=== PATIENT | female | born 1940 | race Caucasian/White ===

== ENCOUNTER 2016-09-26 02:05 | Emergency (ER) | payer OTHER, MEDICARE ==
[2016-09-26 03:23] LABS: PLATELET COUNT 257 x10^3mcL (130-400); RED CELL DISTRIBUTION WIDTH 12.1 % (11.5-14.5)
[2016-09-26 03:25] LABS: ALBUMIN 3.4 g/dL (3.4-5.0); ALKALINE PHOSPHATASE 90 U/L (46-116); ALT/SGPT 19 U/L (14-59); AST/SGOT 15 U/L (15-37); BILIRUBIN TOTAL 0.64 mg/dL (0.20-1.00); CALCIUM 8.8 mg/dL (8.5-10.1); CARBON DIOXIDE 26.8 mmol/L (21-32); CHLORIDE SERUM 98 mmol/L (98-107); CREATININE SERUM 0.7 mg/dL (0.6-1.0); POTASSIUM SERUM 4.1 mmol/L (3.5-5.1); SODIUM SERUM 133 mmol/L (136-145); TOTAL PROTEIN, SERUM 6.9 g/dL (6.4-8.2)
[2016-09-26 03:35] LABS: BASOPHIL % 3.9 % (0-2)
[2016-09-26 04:13] LABS: GLUCOSE SERUM 498 mg/dL (74-106)
[2016-09-26 06:36] VITALS: BP 116/74
== END 2016-09-26 06:36 | disposition home or self-care (01) ==
LOC: ED 02:05
PROVIDERS: Emergency Medicine
DX: Z00.8 Encounter for other general examination (principal); E11.65 Type 2 diabetes mellitus with hyperglycemia; F32.9 Major depressive disorder, single episode, unspecified
CPT/HCPCS: 82962; G0480; J1815; J7030

== ENCOUNTER 2016-12-20 09:51 | Inpatient (IN) | payer OTHER ==
[~2016-12-20] VITALS: Ht 162.6 cm; Wt 53.1 kg
--- NOTE | 2016-12-20 10:14 | NUR ---
PT IS A 76 YEAR OLD FEMALE, RPESENTS TO ED VIA [facility] WITH C/O ALOC AND GENERALIZED WEAKNESS. PER MEDICS, PT WAS FOUND AT HOME IN [place] ON FLOOR. PD WAS CALLED BY FAMILY TO DO A WELLNESS CHECK ON PT DUE TO PT NOT ANSWERING PHONE FOR PAST 3 DAYS. PD FOUND PT ON FLOOR, NO LOC REPORTED. PT REPORTS THAT SHE WENT TO RESTROOM LAST NIGHT AND WAS UNABLE TO GET UP OFF THE TOILET SO SHE STAYED ON RESTROOM FLOOR AND FELT TOO WEAK TO GET BACK TO BED. BS ON SCENE WAS 358. MEDICS GAVE PT ABOUT 400CC OF NS IN LEFT AC IV.PT HAS NOT BEEN COMPLIANT WITH DIABETIC MEDS. PT A/O X4. PT BREAHTING IS EVEN AND UNLABORED, NO S/S OF RESPRAITORY DISTRESS. SPEECH IS CLEAR AND APPROPRIATE. PT LIPS ARE CRACKED. PT HOOKED TO FULL SECURITIES COMPLIANCE EXAMINER. SKIN IS WARM, DRY AND INTACT. PT AWIAITING MSE.
[2016-12-20 11:15] LABS: PLATELET COUNT 385 x10^3mcL (130-400); RED CELL DISTRIBUTION WIDTH 12.3 % (11.5-14.5)
--- NOTE | 2016-12-20 11:18 | NUR ---
BACK FROM CT VIA [facility].
[2016-12-20 11:41] LABS: T3 TOTAL 0.41 ng/mL
[2016-12-20 11:43] LABS: CALCIUM 9.8 mg/dL (8.5-10.1); CARBON DIOXIDE 19.7 mmol/L (21-32); CHLORIDE SERUM 100 mmol/L (98-107); GLUCOSE SERUM 381 mg/dL (74-106); SODIUM SERUM 140 mmol/L (136-145)
[2016-12-20 11:48] LABS: ALKALINE PHOSPHATASE 129 U/L (46-116); ALT/SGPT 14 U/L (14-59); AST/SGOT 12 U/L (15-37); BILIRUBIN TOTAL 0.8 mg/dL (0.20-1.00); TOTAL PROTEIN, SERUM 7.3 g/dL (6.4-8.2)
[2016-12-20 11:49] LABS: ALBUMIN 2.8 g/dL (3.4-5.0); CHOLESTEROL 213 mg/dL (<200)
[2016-12-20 12:09] LABS: BAND NEUTROPHIL 0 % (0-10); BASOPHIL 0 % (0-2); FREE T4 1.89 ng/dL (0.76-1.46); FREE THYROXINE INDEX 2.7 ug/dL (1.4-4.5); MONOCYTE 1 % (0-7); SEGMENTED NEUTROPHILS 98 % (37-75); T4(THYROXINE) 7.5 ug/dL (4.7-13.3)
[2016-12-20 12:10] LABS: PLATELET MORPHOLOGY PLATELETS INCREASED; rbc morphology (normal/abnorm) NORMAL (NORMAL)
--- NOTE | 2016-12-20 12:53 | NUR ---
REPORT CALLED TO KELSEY WONG, HE WILL ASSUME CARE PRIMARY RN POST TRASNFER.
--- NOTE | 2016-12-20 12:55 | NUR ---
RECEIVED REPORT FROM ZORA WONG, WILL AWAIT PT'S ARRIVAL.
[2016-12-20 12:58] LABS: microscopic required? YES; urine erythrocyte TRACE (NEGATIVE)
--- NOTE | 2016-12-20 13:08 | NUR ---
PT VOMITED APRROX 150ML OF BILE WITH PHLEM NOTED IN VOMIT.
--- NOTE | 2016-12-20 13:24 | NUR ---
ARRIVED FROM ED.
[2016-12-20 13:49] VITALS: BP 99/57
--- NOTE | 2016-12-20 13:57 | NUR ---
RECEIVED PT FROM ED VIA [facility]. ORIENTED PT TO ROOM AND SURROUNDINGS. IV NOTED TO LAC PATENT AND INTACT. TELE 36 PLACED ON PT READING STA. INSTRUCTED PT ON THE USE OF CALL LIGHT FOR ASSISTANCE. ENDORSD PT TO PRIMARY NURSE KELSEY
--- NOTE | 2016-12-20 14:06 | NUR ---
PT DENIES SOB, DENIES PAIN, C/O THIRST, RECEIVED REPORT CONCERNING PT FROM TEJAS RN, ASSUMING CARE OF PT, CALL LIGHT INSTRUCTIONS GIVEN, CALL LIGHT WITHIN REACH, WILL CONTINUE TO MONITOR.
--- NOTE | 2016-12-20 15:04 | NUR ---
PT DENIES SOB, DENIES PAIN, FAMILY MEMBER AT BEDSIDE, PT USING PHONE, CALL LIGHT WITHIN REACH, WILL CONTINUE TO MONITOR.
[2016-12-20 16:39] LABS: MAGNESIUM 2.4 mg/dL (1.8-2.4); PHOSPHOROUS 3.8 mg/dL (2.5-4.9)
[2016-12-20 16:40] LABS: CHOLESTEROL/HDL RATIO 4.4
--- NOTE | 2016-12-20 16:45 | NUR ---
PT DENIES SOB, DENIES PAIN, US AT BEDSIDE, CALL LIGHT WITHIN REACH, WILL CONTINUE TO MONITOR.
[2016-12-20 17:00] VITALS: BP 99/57
[2016-12-20 17:02] VITALS: BP 117/69
[2016-12-20 17:08] LABS: CALCIUM 9.5 mg/dL (8.5-10.1); CARBON DIOXIDE 21.7 mmol/L (21-32); CHLORIDE SERUM 102 mmol/L (98-107); CREATININE SERUM 0.7 mg/dL (0.6-1.0); GLUCOSE SERUM 330 mg/dL (74-106); POTASSIUM SERUM 4.4 mmol/L (3.5-5.1); SODIUM SERUM 137 mmol/L (136-145)
--- NOTE | 2016-12-20 17:26 | NUR ---
PT DENIES PAIN, DENIES SOB, BS 317 COVERED PER RISS, ANTIBIOTICS INFUSING, CALL LIGHT WITHIN REACH, WILL CONTINUE TO MONITOR.
--- NOTE | 2016-12-20 18:11 | NUR ---
PT DENIES SOB, DENIES PAIN, DIET ORDERED AND FNS CONTACTED, CALL LIGHT WITHIN REACH, WILL ENDORSE PT TO NEXT SHIFT.
--- NOTE | 2016-12-20 19:43 | NUR ---
PT AAO REG RESP NO SOB V/S STABLE,KEPT CLEAN AND DRY TO TOUCH,IV INFUSING WELL WITH THE SITE PATENT AND INTACT,HOB,PT ON TELE MONITOR AND IN NSR NO ECTOPY OR CHEST PAIN AT THIS TIME,PT ON LOW AIR MATTRESS,HOB,CALL LIGHT EASY REACHED AND WILL CONTINUE TO MONITOR.
--- NOTE | 2016-12-20 20:42 | NUR ---
RESTARTED A NEW HL TO THE LT FOREARM WITH THE SITE PATENT AND INTACT.
[2016-12-20 21:18] VITALS: BP 105/55
--- NOTE | 2016-12-20 21:21 | NUR ---
CALL TO THE LAB TO HAVE THE BMP ORDER AT 2030 TO BE,SAYS THEY WILL COME TO WILL BE COMING UP TO HAVE IT DONE,WILL CONTINUE TO MONITOR. = Note Type Description
[2016-12-20 22:02] LABS: CALCIUM 9.3 mg/dL (8.5-10.1); CARBON DIOXIDE 26.7 mmol/L (21-32); CHLORIDE SERUM 103 mmol/L (98-107); CREATININE SERUM 0.8 mg/dL (0.6-1.0); GLUCOSE SERUM 242 mg/dL (74-106); SODIUM SERUM 140 mmol/L (136-145)
[2016-12-20 22:04] LABS: POTASSIUM SERUM 2.8 mmol/L (3.5-5.1)
--- NOTE | 2016-12-20 22:16 | NUR ---
DR SIMON HAPPEN TO BE ON THE FLOOR MADE AWARE OF PATIENT K+ 2.8,PT SLEEPING AT THIS TIME,WILL CONTINUE TO MONITOR
[2016-12-20] MEDS ORDERED: MIRTAZAPINE15 M2 PO (22:17)
--- NOTE | 2016-12-20 22:33 | NUR ---
20 MEQ K+ RIDER ADMINISTER ORDER.
[2016-12-21 06:02] VITALS: BP 107/61
[2016-12-21 06:29] LABS: CALCIUM 9.1 mg/dL (8.5-10.1); CARBON DIOXIDE 25.9 mmol/L (21-32); CHLORIDE SERUM 109 mmol/L (98-107); CREATININE SERUM 0.6 mg/dL (0.6-1.0); GLUCOSE SERUM 150 mg/dL (74-106); POTASSIUM SERUM 3.9 mmol/L (3.5-5.1); SODIUM SERUM 141 mmol/L (136-145)
--- NOTE | 2016-12-21 06:42 | NUR ---
PT HAD A RESTING NIGHT NO CHANGE IN CONDITION AT THIS TIME,PT CLEAN AND DRY TO TOUCH,WILL CONTINUE TO MONITOR.
[2016-12-21 06:50] LABS: BASOPHIL % 0.2 % (0-2); PLATELET COUNT 350 x10^3mcL (130-400); RED CELL DISTRIBUTION WIDTH 12.4 % (11.5-14.5)
--- NOTE | 2016-12-21 07:33 | NUR ---
PT RECEIVED DURING CHANGE OF SHIFT, ASLEEP BUT AROUSABLE, TELE 36, ST, PULSES PRESENT, NO EDEMA, LUNGS DIM JUAN ANTONIO ON RA, BREATHING EVEN AND UNLABORED, BOWEL SOUNDS ACTIVE, ABLE TO VOID, GENERALIZED WEAKNESS, AIR MATTRESS IN USE, SMALL WOUNDS TO ANUS, NON BLANCHABLE REDNESS TO COCCYX, NO INDICATION OF PAIN, IV TO LAC INFUSING NS AT 140ML/HR, CALL LIGHT WITHIN REACH, WILL CONTINUE TO MONITOR.
--- NOTE | 2016-12-21 09:30 | NUR ---
PT AROUSED FROM SLEEP, AGREED TO MEDICATIONS, NO INDICATION OF PAIN, BREATHING EVEN AND UNLABORED, CALL LIGHT WITHIN REACH, WILL CONTINUE TO MONITOR.
[2016-12-21 09:31] VITALS: BP 108/54
--- NOTE | 2016-12-21 10:07 | NUR ---
PT SPEAKING WITH DR. HIGGINS AND DR. GRIMES.
--- NOTE | 2016-12-21 11:25 | NUR ---
PT ASLEEP BUT AROUSABLE, DENIES SOB, DENIES PAIN, BS 161, VETERINARY VIRUS SERUM INSPECTOR REPORTED PT ONLY ATE 10% OF BREAKFAST, HOLDING INSULIN DUE TO POOR APPETITE, CALL LIGHT WITHIN REACH, WILL CONTINUE TO MONITOR.
--- NOTE | 2016-12-21 12:18 | NUR ---
PT DENIES SOB, DENIES PAIN, CALL LIGHT WITHIN REACH, WILL CONTINUE TO MONITOR.
--- NOTE | 2016-12-21 13:15 | NUR ---
PT DENIES SOB, DENIES PAIN, REQUESTED COFFEE, CALL LIGHT WITHIN REACH, WILL CONTINUE TO MONITOR.
--- NOTE | 2016-12-21 14:16 | NUR ---
PT DENIES SOB, DENIES PAIN, ASSISTED PT TO REPOSITION, CALL LIGHT WITHIN REACH, WILL CONTINUE TO MONITOR.
--- NOTE | 2016-12-21 14:29 | NUR ---
STAFF COUNSELOR BRENDA AND PRIMARY RN CLEANED PT AFTER BM, BM TARRY WITH RED SPOTTING ON CHUX, AFTER ASSISTING WITH ADLS Z-GUARD AND OPTIFOAM DRESSING BLACKED TO COCCYX, DRY HEELS NOTED, PILLOW TO BE PLACED UNDER CALF PER BRENDA RN.
[2016-12-21 14:32] VITALS: BP 114/61
--- NOTE | 2016-12-21 15:26 | NUR ---
PT DENIES SOB, DENIES PAIN, CALL LIGHT WITHIN REACH, WILL CONTINUE TO MONITOR.
--- NOTE | 2016-12-21 16:34 | NUR ---
PT DENIES SOB, DENIES PAIN, REQUESTING ICED TEA AND SUGAR FREE ICE CREAM WITH DINNER, CALL LIGHT WITHIN REACH, WILL CONTINUE TO MONITOR.
--- NOTE | 2016-12-21 17:10 | NUR ---
PT SPEAKING WITH DR. OWEN.
[2016-12-21 17:42] VITALS: BP 117/67
--- NOTE | 2016-12-21 18:14 | NUR ---
PT DENIES SOB, DENIES PAIN, EATING DINNER, CALL LIGHT WITHIN REACH, WILL ENDORSE PT TO NEXT SHIFT.
--- NOTE | 2016-12-21 19:21 | NUR ---
REC'D PT FROM DAY NURSE. AAOX3. LAYING IN BED COMFORTABLY. DENIES PAIN AT THIS TIME. TELE #36 SR. LUNG SOUNDS ARE DIMINISHED BUT CTA. NO SOB. BREATHING EVEN AND UNLABORED. ABD IS ACTIVE X4. NO EDEMA NOTED. IV INTACT AND PATENT INFUSING WELL. BED IN LOWEST POSITION. CALL LIGHT WITHIN REACH. WILL CONT TO MONITOR.
[2016-12-21 20:21] VITALS: BP 89/45
[2016-12-21 22:10] VITALS: BP 101/64
--- NOTE | 2016-12-22 00:22 | NUR ---
PT IS CURRENTLY ASLEEP AND RESTING WELL. NO ACUTE DISTRESS NOTED. BREATHING EVEN AND UNLABORED. IV INTACT AND PATENT INFUSING WELL. WILL CONT TO MONITOR.
--- NOTE | 2016-12-22 04:51 | NUR ---
ROUNDS MADE. PT IS ASLEEP AND RESTING WELL WITH THE HOB ELEVATEED. NO ACUTE DISTRESS NOTED. BREATH SOUNDS ARE EVEN AND UNLABORED. IV INTACT AND PATENT. WILL CONT TO MONITOR.
[2016-12-22 06:10] VITALS: BP 100/60
--- NOTE | 2016-12-22 06:27 | NUR ---
PT SLEPT THROUGHOUT THE SHIFT. NO ACUTE DISTRESS OR SIGNIFICANT CHANGES NOTED. BREATHING EVEN AND UNLABORED. MEDICATED PER EMAR. IV INTACT AND PATENT INFUSING WELL. WILL ENDORSE ALL CONTNUITY CARE TO ONCOMING NURSE.
--- NOTE | 2016-12-22 08:00 | NUR ---
A/A/OX3; CLEAR SPEECH. TELE#36 = ST; HR = 101; DENIED CHEST PAIN. BREATHING SOUND DIMINISHED TO LLL W/ FINE CRACKLES. NO SOB ON RA. O2 SAT 96% ON RA.OCCASINAL NON PRODUCTIVE COUGHING. FINISHED 80% OF BREAKFAST. OUT OF BED WITH PHYSICAL THERAPIST. B/B INCONT. HAD LARGE LOOSE BM X1. DENIED PAIN. IVF FO NS 80CC/HR INFUSING WELL TO RFA. IV SITE CLEAN. CALL LIGHT IN REACH.
--- NOTE | 2016-12-22 09:10 | NUR ---
DR. ROMERO AND MEDICAL TEAM MADE MORNING ROUND. PLAN OF CARE DISCUSSED WITH PATEINT, INCLUDED WITH TREATMENT OF PNA. PATIENT AGREED WITH PLAN OF CARE.
[2016-12-22 09:23] VITALS: BP 93/46
[2016-12-22 09:39] LABS: ALKALINE PHOSPHATASE 92 U/L (46-116); ALT/SGPT 12 U/L (14-59); AST/SGOT 13 U/L (15-37); BILIRUBIN TOTAL 0.51 mg/dL (0.20-1.00); CALCIUM 8.8 mg/dL (8.5-10.1); CHLORIDE SERUM 105 mmol/L (98-107); CREATININE SERUM 0.6 mg/dL (0.6-1.0); GLUCOSE SERUM 208 mg/dL (74-106); SODIUM SERUM 139 mmol/L (136-145)
[2016-12-22 09:50] LABS: ALBUMIN 2.2 g/dL (3.4-5.0); POTASSIUM SERUM 2.8 mmol/L (3.5-5.1); TOTAL PROTEIN, SERUM 5.9 g/dL (6.4-8.2)
[2016-12-22 10:03] LABS: PLATELET COUNT 281 x10^3mcL (130-400); RED CELL DISTRIBUTION WIDTH 12.8 % (11.5-14.5)
[2016-12-22 10:43] LABS: BAND NEUTROPHIL 0 % (0-10); BASOPHIL 0 % (0-2); MONOCYTE 3 % (0-7); SEGMENTED NEUTROPHILS 88 % (37-75)
[2016-12-22 10:44] LABS: PLATELET MORPHOLOGY PLATELETS NORMAL
--- NOTE | 2016-12-22 11:00 | NUR ---
NOTIFIED DR. BUTT WITH PATIENT'S POTASSIUM LEVEL = 2.8; ORDER OF KCL 40 MEQ PO GIVEN. K- RIDER IN PENDING.
--- NOTE | 2016-12-22 13:13 | NUR ---
Initial Nutrition Assessment Dx: Pneumonia, dehydration, diabetes out of control PMHx: DM, COPD, HLD PSHx: Cholecystectomy (29 years ago) Labs: (12/22) BH, Alb:2.2L, (12/20) TH, Chol:213H, LDL:137H, A1c:11.5H, Meds: Antivert, Colace, Glucophage, Glucotrol, Humulin, KCL, Lactinex, NS IV, Zosyn Diet:Mechanical soft, chopped PO Intake: (12/21) B:10%, L:20% D:60% (12/22) B:80% Ht: 64in, 5'4" Wt: 117#,53.07kg BMI:20.1kg/m2 (normal weight) IBW: 120#,55kg %IBW: 98% UBW:129# x 1 month, per pt Age:76 y/o female Food Allergies:NKFA Skin: +1cm healed sacral ulcer. Ponce:13 Edema:None GI: Last BM:12/18 Nursing Trigger: appears underweight/malnourished, unintentional wt loss>10# in past month and poor PO intake>3days. Pt admitted with possible aspiration pneumonia vs. 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 CT of head showed no acure inctracranial process, per H&P. Per bed huddle yesterday morning, pt is being treated for pneumonia with antibiotics, is on RT protocol and will have a consult with Dr. Will for suicidal ideation. Per progress note 12/21, urology will be consulted on 12/22 for mild BL hydronephrosis. During visit, observed pt lying underneath covers and eating denis crackers. Pt appears underweight but not malnourished. Pt reports good appetite with no GI issues. Pt stated she has had unintentional wt los of 12# within the past month due to poor appetite and was open to trying supplements for wt gain. Problem with: N: No V: No D:No C:No Problems with: Chewing:No Swallowing: No Current appetite: Good Recent wt change:-12# in the past month %wt change:9.3%, severe Vitamin/Supplement use:No Special diet at home:Regular Physical activity:Pt walks her dogs 3x/day Education: Pt declined diabetic diet education. Estimated Nutritional Needs Based on actual body weight 53kg Energy: 1590-1855kcal/d (30-35kcal/kg for weight gain) Protein: 53-64g/d (1.0-1.2g/kg for weight gain) Fluid: 1325-1590ml/d (1 ml/kcal) or per doctor Nutrition Diagnosis 1. Altered nutrition labs related to endocrine dysfunction and pt reports non-compliance with Metformin as evidenced by A1c:11.2 2. Unintentional wt loss related to poor appetite secondary to lethargy per pt as evidenced by 12# wt loss and 9.3% wt change in the past month. Intervention 1.Recommend Boost Glucose Control BID between meals (provides 500kcal and 28g pro) Monitor/Evaluate Goal: PO intake at least 75% of estimated needs Monitor: PO intake, Labs, GI function F/U in 3-5 days as moderate risk:12/25-6
--- NOTE | 2016-12-22 13:16 | NUR ---
Recommend Boost Glucose Control BID between meals (provides 500kcal and 28g pro)
[2016-12-22 14:18] VITALS: BP 101/55
--- NOTE | 2016-12-22 16:10 | NUR ---
PHYSICAL THERAPY DAILY NOTES CO-SIGN All documentation done by the Supervisor Inventory Merchandising for 12/22/16 has been reviewed. I agree with the documentation. Reviewed/Co-Signed by: Eden Mcrae PT Documentation Done by:SAURABH VASQUEZ INVESTMENT SALES ASSISTANT POC REVIEWED W/ INVESTMENT SALES ASSISTANT; WILL BENEFIT W/ P.T. AFTER ACUTE STAY; PROGRESS SHIRA; EMPHASIS ON STRENGTHENING PROGRAM, FALL PREVENTION, SAFE GAIT PROGRESSION.
[2016-12-22 16:20] LABS: CALCIUM 8.3 mg/dL (8.5-10.1); CARBON DIOXIDE 31.9 mmol/L (21-32); CHLORIDE SERUM 104 mmol/L (98-107); CREATININE SERUM 0.7 mg/dL (0.6-1.0); GLUCOSE SERUM 345 mg/dL (74-106); POTASSIUM SERUM 3.9 mmol/L (3.5-5.1); SODIUM SERUM 137 mmol/L (136-145)
--- NOTE | 2016-12-22 16:41 | NUR ---
K - RIDER 40 MEQ IV GIVEN. BMP CHECKED.
[2016-12-22 18:46] VITALS: BP 102/60
--- NOTE | 2016-12-22 19:00 | NUR ---
CONDITION STABLE. TOLERATED DINNER WELL. HAD LARGE LOOSE BM X2 THIS SHIFT. URINE INCONT. ENDORSED CARE TO NOC NURSE.
[2016-12-22 21:44] VITALS: BP 100/53
[2016-12-23] VITALS (7 sets, daily range): BP systolic 101–120; BP diastolic 53–78; Ht 162.6 cm; Wt 53.1 kg
[2016-12-23 06:14] LABS: CALCIUM 8.4 mg/dL (8.5-10.1); CARBON DIOXIDE 30.9 mmol/L (21-32); CHLORIDE SERUM 107 mmol/L (98-107); CREATININE SERUM 0.4 mg/dL (0.6-1.0); GLUCOSE SERUM 176 mg/dL (74-106); POTASSIUM SERUM 3.9 mmol/L (3.5-5.1); SODIUM SERUM 139 mmol/L (136-145)
--- NOTE | 2016-12-23 07:00 | NUR ---
PT SLEPT AT LONG INTERVALS DURING SHIFT. NO C/O PAIN. NO DISTRESS NOTED. SAFETY MEASURES MAINTAINED. CALL LIGHT WITHIN REACH. WILL ENDORSE CARE TO DAY SHIFT RN.
[2016-12-23 07:09] LABS: BASOPHIL % 0.3 % (0-2); PLATELET COUNT 261 x10^3mcL (130-400); RED CELL DISTRIBUTION WIDTH 12.8 % (11.5-14.5)
--- NOTE | 2016-12-23 07:20 | NUR ---
BEDSIDE REPORT RECEIVED FROM [facility] SHIFT NURSE AT THIS TIME. PATIENT ASLEEP, NO SIGNS OF DISTRESS NOTED, WILL CONTINUE TO MONITOR, BED ALARM ON.
--- NOTE | 2016-12-23 07:55 | NUR ---
PATIENT AWAKE, ALERT, NO SIGNS OF DISTRESS NOTED, EATING BREAKFAST. OREINTED X3, FORGETFUL AT TIMES, DENIES HEADACHE. DENIES CHEST PAIN, NO DIZZINESS, TELE# 36, HR 90. SCD'S IN PLACE, ON ROOM AIR, NS INFUSING TO RFA AT 80 ML/HR, NO REDNESS NOR INFILTRATION NOTED TO SITE. CALM AND COOPERATIVE WITH CARE, ALL SAFETY MEASURES IN PLACE, WILL CONTINUE TO MONITOR.
--- NOTE | 2016-12-23 08:50 | NUR ---
ROUNDS MADE AT THIS TIME WITH MD TEAM, CHARGE NURSE EULOGIO, AND DR KEENAN. PLAN OF CARE DISCUSSED WITH PATIENT, ALL SAFETY MEASURES IN PLACE, WILL CONTINUE TO MONITOR.
--- NOTE | 2016-12-23 10:15 | NUR ---
PATIENT AWAKE, ALERT, FAMILY AT BEDSIDE. ALL NEEDS ATTENDED TO, ALL SAFETY MEASURES IN PLACE, WILL CONTINUE TO MONITOR.
--- NOTE | 2016-12-23 12:30 | NUR ---
PATIENT AWAKE, ALERT, NO SIGNS OF DISTRESS NOTED. FAMILY AT BEDSIDE, ALL SAFETY MEASURES IN PLACE, BED ALARM ON, WILL CONTINUE TO MONITOR.
--- NOTE | 2016-12-23 15:10 | NUR ---
PATIENT ASLEEP, NO SIGNS OF DISTRESS NOTED, BREATHING EVEN AND UNLABORED, ALL SAFETY MEASURES IN PLACE, WILL CONTINUE TO MONITOR.
--- NOTE | 2016-12-23 16:20 | NUR ---
PHYSICAL THERAPY DAILY NOTES CO-SIGN All documentation done by the Php Software Engineer for 12/23/16 has been reviewed. I agree with the documentation. I CONCUR W/RUSSET REPAIRER NOTE; CONT PER TX PLAN Reviewed/Co-Signed by: Ansley Aguilar V PT Documentation Done by: SAURABH VASQUEZ RUSSET REPAIRER
--- NOTE | 2016-12-23 17:50 | NUR ---
ASSISTED PATIENT TO BATHROOM AT THIS TIME. GAIT SLOW, UNSTEADY, SAFELY RETURNED TO BED, BED ALARM ON, CALL LIGHT IN HAND, WILL CONTINUE TO MONITOR.
--- NOTE | 2016-12-23 19:15 | NUR ---
PATIENT RECEIVED AWAKE, ALERT, AND ORIENTED X 3. NO DISTRESS NOTED. PATIENT DENIES PAIN AT THIS TIME. IV SITE TO RIGHT FOREARM, PATENT AND INTACT. IV FLUID INFUSING PER DOCTOR'S ORDER. BED IN LOWEST POSITION. CALL LIGHT WITHIN REACH. WILL CONTINUE TO MONITOR.
--- NOTE | 2016-12-24 05:06 | NUR ---
PATIENT RESTED THROUGHOUT THE NIGHT. NO DISTRESS NOTED. NO C/O PAIN/DISCOMFORT. BED IN LOWEST POSITION. CALL LIGHT WITHIN REACH. WILL CONTINUE TO MONITOR AND ENDORSE TO NEXT SHIFT NURSE.
--- NOTE | 2016-12-24 05:35 | NUR ---
PATIENT BS=61, PROVIDED CRACKERS AND JUICE. RECHECKED BS=58. PUSHED 25ML OF D50. RECHECKED DI=886. DR DAQUAN BARRY.
[2016-12-24 06:06] VITALS: BP 126/67
--- NOTE | 2016-12-24 07:10 | NUR ---
BEDSIDE REPORT RECEIVED FROM [facility] SHIFT NURSE AT THIS TIME. PATIENT ASLEEP, NO SIGNS OF DISTRESS NOTED. BREATHING EVEN AND UNLABORED, ALL SAFETY MEASURES IN PLACE, WILL CONTINUE TO MONITOR.
[2016-12-24 07:39] LABS: BASOPHIL % 0.2 % (0-2); PLATELET COUNT 265 x10^3mcL (130-400); RED CELL DISTRIBUTION WIDTH 12.9 % (11.5-14.5)
--- NOTE | 2016-12-24 07:40 | NUR ---
PATIENT AWAKE, ALERT, NO SIGNS OF DISTRESS NOTED. DENIES CHEST PAIN, NO DIZZINESS, TELE# 36. SCD'S IN PLACE, ON ROOM AIR. NS INFUSING TO RFA AT 80 ML/HR, NO REDNESS NOR INFILTRATION NOTED TO SITE. CALM AND COOPERATIVE WITH CARE, ALL SAFETY MEASURES IN PLACE, WILL CONTINUE TO MONITOR.
--- NOTE | 2016-12-24 08:40 | NUR ---
ROUNDS MADE AT THIS TIME WITH MD TEAM, CHARGE NURSE URIEL, AND DR KEENAN. PATIENT AWAKE, ALERT, NO SIGNS OF DISTRESS NOTED. ALL QUESTIONS ADDRESSED, WILL CONTINUE TO MONITOR.
[2016-12-24 10:13] VITALS: BP 130/74
--- NOTE | 2016-12-24 12:00 | NUR ---
PATIENT AWAKE, ALERT, FAMILY AT BEDSIDE. NO SIGNS OF DISTRESS NOTED, ALL SAFETY MEASURES IN PLACE, WILL CONTINUE TO MONITOR.
[2016-12-24 13:33] VITALS: BP 139/79
--- NOTE | 2016-12-24 13:45 | NUR ---
PATIENT AWAKE, ALERT, FAMILY AT BEDSIDE, PATIENT WARM TO TOUCH, T 100.7, TYLENOL GIVEN (SEE EMAR), COOLING MEASURES IN PLACE, WILL CONTINUE TO MONITOR.
--- NOTE | 2016-12-24 13:50 | NUR ---
PATIENT HOT TO TOUCH, TEMP 100.7, NO SIGNS OF DISTRESS NOTED, FAMILY AT BEDSIDE, TYLENOL GIVEN (SEE EMAR). ALL SAFETY MEASURES IN PLACE, WILL CONTINUE TO MONITOR.
[2016-12-24 17:24] VITALS: BP 138/78
--- NOTE | 2016-12-24 17:30 | NUR ---
PATIENT AWAKE, ALERT, NO SIGNS OF DISTRESS NOTED, ASSISTED TO BATHROOM AT THIS TIME. RETURNED SAFELY TO BED. FAMILY AT BEDSIDE, CALL LIGHT IN HAND, WILL CONTINUE TO MONITOR.
--- NOTE | 2016-12-24 19:02 | NUR ---
BEDSIDE REPORT GIVEN TO NOC SHIFT NURSE AT THIS TIME. PATIENT AWAKE, ALERT, NO SIGNS OF DISTRESS NOTED. ALL SAFETY MEASURES IN PLACE, WILL CONTINUE TO MONITOR.
[2016-12-24 21:44] VITALS: BP 120/66
--- NOTE | 2016-12-25 04:14 | NUR ---
PATIENT BS=57 RECHECKED BS=59. PUSHED D50. RECHECKED WF=353. DR MIRANDA AWARE. WILL CONTINUE TO MONITOR.
--- NOTE | 2016-12-25 05:03 | NUR ---
PATIENT RESTED THROUGHOUT THE NIGHT. NO DISTRESS NOTED. NO C/O PAIN/DISCOMFORT. SAFETY AND COMFORT MEASURES MAINTAINED. BED IN LOWEST POSITION. CALL LIGHT WITHIN REACH. WILL CONTINUE TO MONITOR AND ENDORSE TO NEXT SHIFT NURSE.
[2016-12-25 06:00] VITALS: BP 127/72
--- NOTE | 2016-12-25 07:30 | NUR ---
PT AWAKE ALERT AND ORIENTED X3 FORGETFUL AT TIMES. TELE 36. PULSES EQUAL BILATERAL NO EDEMA NOTED. LUNG SOUNDS DIMINISHED TO BLL. BOWEL TONES ACTIVE IN ALL QUADS. GENERALIZED EDEMA. REDNESS TO COCCYX. DENIES PAIN. PT IS CALM AND COOERATIVE WITH CARE.
[2016-12-25] MEDS ORDERED: LEVAQUIN750 MG PO (09:50)
[2016-12-25] MEDS ORDERED: CLINDAMYCIN HC300 MG PO (09:50)
[2016-12-25] MEDS ORDERED: FLO4 PO (09:55)
--- NOTE | 2016-12-25 09:55 | NUR ---
PT RESTING IN BED NO SIGNS OF DISTRESS, CALL LIGHT IN REACH WILL CONTINUE TO MONITOR.
[2016-12-25] MEDS ORDERED: BG FS (09:56)
[2016-12-25] MEDS ORDERED: LIPI10 PO (09:56)
[2016-12-25] MEDS ORDERED: COL100 PO (09:57)
[2016-12-25] MEDS ORDERED: LAC PO (09:57)
[2016-12-25] MEDS ORDERED: THERA TABS1 TAB PO (09:58)
[2016-12-25] MEDS ORDERED: GLU500 PO (09:58)
[2016-12-25 10:15] VITALS: BP 127/72
[2016-12-25 10:21] VITALS: BP 99/49
--- NOTE | 2016-12-25 14:38 | NUR ---
REPORT CALLED AND GIVEN TO BARRON AT [facility].
--- NOTE | 2016-12-25 15:31 | NUR ---
DISCHARGE INSTRUCTIONS GIVEN TO PT, PT VERBALIZED UNDERSTANDING, IV DC'D CATHER TIP INTACT. TELE CLEANED AND RETURNED TO MONITOR ROOM. ALL BELONGINGS TAKEN OFF THE FLOOR BY PT. NINI HERE TO MANAGER FILTER PT, SKIN CDI, PT GIVEN DISPOSIBLE UNDERWEAR. PT PLACED IN WHEEL CHAIR AND TAKEN TO SN[facility]. CALLED PTS FAMILY ROJAS.
== END 2016-12-25 15:35 | DRG 871 ==
LOC: ED 09:51 → DU 12:22
PROVIDERS: Emergency Medicine; ADMIT Family Medicine
DX: A41.9 Sepsis, unspecified organism (principal); J69.0 Pneumonitis due to inhalation of food and vomit; N17.0 Acute kidney failure with tubular necrosis; E43 Unspecified severe protein-calorie malnutrition; N13.30 Unspecified hydronephrosis; R65.20 Severe sepsis without septic shock; R55 Syncope and collapse; I95.1 Orthostatic hypotension; E11.65 Type 2 diabetes mellitus with hyperglycemia; J44.9 Chronic obstructive pulmonary disease, unspecified; F32.9 Major depressive disorder, single episode, unspecified; R31.9 Hematuria, unspecified; E78.5 Hyperlipidemia, unspecified; Z87.891 Personal history of nicotine dependence; Z68.20 Body mass index [BMI] 20.0-20.9, adult; Z79.84 Long term (current) use of oral hypoglycemic drugs
CPT/HCPCS: 36600; 82962; 83880; 84439; 97110-GP; 97116-GP; 97530-GP; J0456; J0696; J1815; J2543; J3480; J3490; J7030; J7050; J7620; Q0092